=== PATIENT | female | born 1960 | race African-American/Black ===

== ENCOUNTER 2017-09-05 18:02 | Emergency (ER) | payer MEDICARE, MEDICAID ==
[~2017-09-05] VITALS: Ht 160 cm; Wt 60.0 kg
[2017-09-05] MEDS ORDERED: WARF1TAB46 PO (18:07)
[2017-09-05] MEDS ORDERED: IBUPROFEN 600MG TABLET PO ONE (23:15)
[2017-09-06 02:55] VITALS: BP 100/67
== END 2017-09-06 02:57 | disposition home or self-care (01) ==
LOC: ER 18:02
DX: M25.571 Pain in right ankle and joints of right foot (principal); M79.671 Pain in right foot; Z88.0 Allergy status to penicillin; Z86.711 Personal history of pulmonary embolism
CPT/HCPCS: 73610; 73630; 93971; 99284

== ENCOUNTER 2018-02-28 21:40 | Emergency (ER) | payer MEDICARE, MEDICAID ==
[~2018-02-28] VITALS: Ht 160 cm; Wt 56.7 kg
[~2018-02-28 21:40] MED LIST: WARF1TAB46 PO
[2018-03-01] MEDS ORDERED: HYDROCODONE/ACETAMINOPHEN 5/325MG TABLET PO ONE (01:15)
[2018-03-01 01:51] LABS: BASOPHILS % 0.5 % (0.0-2.0); EOSINOPHILS % 2.1 % (0.0-5.0); HEMATOCRIT. 31.4 % (36.0-48.0); HEMOGLOBIN. 11.1 g/dL (12.0-16.0); LYMPHOCYTES % 38.9 % (20.0-50.0); MEAN CORPUSCULAR HEMOGLOBIN 32.5 pg (28.0-32.0); MEAN CORPUSCULAR VOLUME 92.2 fL (81.0-99.0); MEAN PLATELET VOLUME 8.2 fl (7.4-10.4); MONOCYTES % 9.9 % (2.0-8.0); NEUTROPHILS % 48.6 % (40.0-76.0); PLATELET 245 x1000/uL (130-400); RED CELL DISTRIBUTION WIDTH 13.3 % (11.6-14.6)
[2018-03-01 01:58] LABS: CHLORIDE 112 mEq/L (98-107)
[2018-03-01 03:06] VITALS: BP 103/65
== END 2018-03-01 03:51 | disposition home or self-care (01) ==
LOC: ER 22:49
DX: J98.8 Other specified respiratory disorders (principal); G89.29 Other chronic pain; M54.9 Dorsalgia, unspecified; F12.10 Cannabis abuse, uncomplicated; Z79.899 Other long term (current) drug therapy
CPT/HCPCS: 36415; 71045; 87804; 99284

== ENCOUNTER 2018-08-19 06:53 | Emergency (ER) | payer MEDICARE, MEDICAID ==
[~2018-08-19] VITALS: Ht 160 cm; Wt 57.0 kg
[2018-08-19] MEDS ORDERED: FAMOTIDINE 20MG/2ML VIAL IV STA (07:49)
[2018-08-19] MEDS ORDERED: SODIUM CHLORIDE 0.9% 1,000 ML IV ONE (07:49)
[2018-08-19] MEDS ORDERED: KETOROLAC 30MG/ML VIAL IV STA (07:49)
[2018-08-19] MEDS ORDERED: ONDANSETRON HCL 4MG/2ML INJ IV STA (07:49)
[2018-08-19 08:14] LABS: CHLORIDE 110 mEq/L (98-107); INR 1.1; PROTHROMBIN TIME 11.6 sec (9.6-11.0)
[2018-08-19 08:15] LABS: HEMATOCRIT. 36.7 % (36.0-48.0); HEMOGLOBIN. 12.9 g/dL (12.0-16.0); MEAN CORPUSCULAR HEMOGLOBIN 32.1 pg (28.0-32.0); MEAN PLATELET VOLUME 8.7 fl (7.4-10.4); PLATELET 245 x1000/uL (130-400); RED BLOOD CELL COUNT 4.03 mill/uL (4.2-5.4); RED CELL DISTRIBUTION WIDTH 12.6 % (11.6-14.6)
[2018-08-19 08:49] LABS: PLATELET ESTIMATE NORMAL
[2018-08-19] MEDS ORDERED: ACETAMINOPHEN 325MG TABLET PO ONE (10:00)
[2018-08-19] MEDS ORDERED: ONDANSETRON HCL 4MG TABLET PO ONE (10:00)
[2018-08-19 10:29] LABS: CLARITY URINE CLEAR (CLEAR); COLOR URINE YELLOW (YELLOW); KETONES URINE TRACE (NEGATIVE); LEUKOCYTE ESTERASE URINE NEGATIVE (NEGATIVE); NITRITE URINE NEGATIVE (NEGATIVE); OCCULT BLOOD URINE NEGATIVE (NEGATIVE); PROTEIN URINE NEGATIVE (NEGATIVE); SPECIFIC GRAVITY URINE 1.008 (1.005-1.030); UROBILINOGEN URINE 0.2 E.U./dL (0.2-1.0)
[2018-08-19 11:11] VITALS: BP 166/89
== END 2018-08-19 11:30 | disposition home or self-care (01) ==
LOC: ER 06:53
DX: R10.9 Unspecified abdominal pain (principal); R11.2 Nausea with vomiting, unspecified; E87.6 Hypokalemia; D72.829 Elevated white blood cell count, unspecified; F12.10 Cannabis abuse, uncomplicated
CPT/HCPCS: 36415; 80053; 81003; 83690; 85025; 85610; 96361; 96374; 96375; 99283; J1885; J2405; J3490; J7030; Q0162

== ENCOUNTER 2021-07-05 21:22 | Emergency (ER) | payer MEDICARE, MEDICAID ==
[~2021-07-05] VITALS: Ht 160 cm; Wt 50.8 kg
[2021-07-05 22:36] VITALS: BP 124/83
[2021-07-06] MEDS ORDERED: IBUP-2028 MT (08:46)
== END 2021-07-06 01:40 | disposition left against medical advice (07) ==
LOC: ER 21:22
DX: Z53.21 Procedure and treatment not carried out due to patient leaving prior to being seen by health care provider (principal); M25.512 Pain in left shoulder; M25.511 Pain in right shoulder; I10 Essential (primary) hypertension; J45.909 Unspecified asthma, uncomplicated
CPT/HCPCS: 73030

== ENCOUNTER 2021-07-06 06:05 | Emergency (ER) | payer MEDICARE, MEDICAID ==
[~2021-07-06] VITALS: Ht 160 cm; Wt 50.8 kg
[2021-07-06] MEDS ORDERED: IBUPROFEN 600MG TABLET PO STA (06:39)
[2021-07-06 07:00] VITALS: BP 147/99
[2021-07-06] MEDS ORDERED: IBUP-2028 MT (08:46)
== END 2021-07-06 09:25 | disposition home or self-care (01) ==
LOC: ER 06:05
DX: M25.512 Pain in left shoulder (principal); M25.511 Pain in right shoulder; M19.012 Primary osteoarthritis, left shoulder; M19.011 Primary osteoarthritis, right shoulder; I10 Essential (primary) hypertension; J45.909 Unspecified asthma, uncomplicated
CPT/HCPCS: 71045; 99283

== ENCOUNTER 2021-10-31 22:30 | Emergency (ER) | payer MEDICARE, MEDICAID ==
[~2021-10-31] VITALS: Ht 162.6 cm; Wt 55.0 kg
[~2021-10-31 22:30] MED LIST changes: +IBUP-2028 MT
[2021-10-31 22:34] VITALS: BP 122/85
[2021-10-31] MEDS ORDERED: FAMOTIDINE 20MG/2ML VIAL IV STA (23:31)
[2021-10-31] MEDS ORDERED: SODIUM CHLORIDE 0.9% 1,000 ML IV ONE (23:45)
[2021-11-01 00:33] LABS: BASOPHILS % 1.1 % (0.0-2.0); EOSINOPHILS % 2.7 % (0.0-5.0); HEMATOCRIT. 33.7 % (36.0-48.0); HEMOGLOBIN. 11.3 g/dL (12.0-16.0); LYMPHOCYTES % 34.6 % (20.0-50.0); MEAN CORPUSCULAR HEMOGLOBIN 31.2 pg (28.0-32.0); MEAN CORPUSCULAR VOLUME 92.7 fL (81.0-99.0); MEAN PLATELET VOLUME 8.1 fl (7.4-10.4); MONOCYTES % 7.6 % (2.0-8.0); PLATELET 276 x1000/uL (130-400); RED BLOOD CELL COUNT 3.64 mill/uL (4.2-5.4); RED CELL DISTRIBUTION WIDTH 13.6 % (11.6-14.6)
[2021-11-01 00:40] LABS: CHLORIDE 108 mEq/L (98-107)
[2021-11-01 01:58] LABS: CLARITY URINE CLOUDY (CLEAR); COLOR URINE YELLOW (YELLOW); KETONES URINE NEGATIVE (NEGATIVE); LEUKOCYTE ESTERASE URINE 1+ (NEGATIVE); NITRITE URINE NEGATIVE (NEGATIVE); OCCULT BLOOD URINE NEGATIVE (NEGATIVE); PH URINE 6.5 (4.5-8.0); PROTEIN URINE NEGATIVE (NEGATIVE); SPECIFIC GRAVITY URINE 1.014 (1.005-1.030); UROBILINOGEN URINE 0.2 E.U./dL (0.2-1.0)
[2021-11-01] MEDS ORDERED: ONDA4TAB50 MT (03:09)
[2021-11-01] MEDS ORDERED: HYDR-4001 MT (03:09)
== END 2021-11-01 04:46 | disposition home or self-care (01) ==
LOC: ER 22:30
DX: R10.13 Epigastric pain (principal); K85.90 Acute pancreatitis without necrosis or infection, unspecified; I10 Essential (primary) hypertension; J45.909 Unspecified asthma, uncomplicated; F12.10 Cannabis abuse, uncomplicated; Z79.01 Long term (current) use of anticoagulants
CPT/HCPCS: 36415; 71045; 74176; 80053; 81003; 83605; 83690; 85025; 93005; 96361; 96374; 99285; J3490; J7030

== ENCOUNTER 2021-11-17 22:09 | Emergency (ER) | payer MEDICARE, MEDICAID ==
[~2021-11-17] VITALS: Ht 152.4 cm; Wt 61.0 kg
[~2021-11-17 22:09] MED LIST changes: +HYDR-4001 MT; +ONDA4TAB50 MT
[2021-11-17 22:15] VITALS: BP 107/67
[2021-11-18] MEDS ORDERED: MAGNESIUM/ALUMINUM HYDROXIDE/SIMETHICONE 30ML UDC PO STA (03:53)
[2021-11-18] MEDS ORDERED: ACETAMINOPHEN 325MG TABLET PO STA (03:53)
[2021-11-18 04:48] LABS: CLARITY URINE CLEAR (CLEAR); COLOR URINE YELLOW (YELLOW); KETONES URINE TRACE (NEGATIVE); LEUKOCYTE ESTERASE URINE TRACE (NEGATIVE); NITRITE URINE NEGATIVE (NEGATIVE); OCCULT BLOOD URINE NEGATIVE (NEGATIVE); PROTEIN URINE NEGATIVE (NEGATIVE); SPECIFIC GRAVITY URINE 1.023 (1.005-1.030)
[2021-11-18] MEDS ORDERED: ALBU18HF2 IH (05:19)
[2021-11-18] MEDS ORDERED: ACET-2708 PO (05:19)
== END 2021-11-18 05:40 | disposition home or self-care (01) ==
LOC: ER 22:09
DX: M54.50 Low back pain, unspecified (principal); J45.909 Unspecified asthma, uncomplicated; I10 Essential (primary) hypertension; F12.10 Cannabis abuse, uncomplicated
CPT/HCPCS: 81003; 99283

== ENCOUNTER 2021-12-20 10:32 | Emergency (ER) | payer MEDICARE ==
[~2021-12-20] VITALS: Ht 162.6 cm; Wt 54.0 kg
[~2021-12-20 10:32] MED LIST changes: +ACET-2708 PO; +ALBU18HF2 IH
[2021-12-20] MEDS ORDERED: KETOROLAC 30MG/ML VIAL IM STA (12:42)
[2021-12-20] MEDS ORDERED: T3 PO (13:10)
[2021-12-20 13:32] VITALS: BP 143/97
== END 2021-12-20 13:33 | disposition home or self-care (01) ==
LOC: ER 10:32
DX: S40.011A Contusion of right shoulder, initial encounter (principal); F12.10 Cannabis abuse, uncomplicated; I10 Essential (primary) hypertension; J45.909 Unspecified asthma, uncomplicated; Z98.890 Other specified postprocedural states; V09.9XXA Pedestrian injured in unspecified transport accident, initial encounter; Y93.89 Activity, other specified; Y92.89 Other specified places as the place of occurrence of the external cause; Y99.8 Other external cause status
CPT/HCPCS: 73030; 96372; 99283; J1885

== ENCOUNTER 2021-12-22 20:15 | Emergency (ER) | payer MEDICARE, MEDICAID ==
[~2021-12-22] VITALS: Ht 160 cm; Wt 56.0 kg
[~2021-12-22 20:15] MED LIST changes: +T3 PO
[2021-12-22 21:19] LABS: BASOPHILS % 0.7 % (0.0-2.0); EOSINOPHILS % 1.5 % (0.0-5.0); HEMATOCRIT. 34.2 % (36.0-48.0); HEMOGLOBIN. 12.1 g/dL (12.0-16.0); LYMPHOCYTES % 27.1 % (20.0-50.0); MEAN CORPUSCULAR HEMOGLOBIN 32.3 pg (28.0-32.0); MEAN CORPUSCULAR VOLUME 90.8 fL (81.0-99.0); MEAN PLATELET VOLUME 7.8 fl (7.4-10.4); MONOCYTES % 5.7 % (2.0-8.0); PLATELET 334 x1000/uL (130-400); RED BLOOD CELL COUNT 3.77 mill/uL (4.2-5.4); RED CELL DISTRIBUTION WIDTH 13.7 % (11.6-14.6)
[2021-12-22 21:23] LABS: CHLORIDE 109 mEq/L (98-107)
[2021-12-22] MEDS: LIDOCAINE 5% PATCH TOP SCH (21:29)
[2021-12-22] MEDS: IBUPROFEN 400MG TABLET PO ONE (21:29)
[2021-12-22] MEDS: ACETAMINOPHEN 325MG TABLET PO ONE (21:29)
[2021-12-23 00:44] VITALS: BP 100/64
[2021-12-23] MEDS ORDERED: METH-653 MT (00:50)
== END 2021-12-23 01:41 | disposition home or self-care (01) ==
LOC: ER 20:15
DX: M25.511 Pain in right shoulder (principal); F41.9 Anxiety disorder, unspecified; J45.909 Unspecified asthma, uncomplicated; F32.9 Major depressive disorder, single episode, unspecified; I10 Essential (primary) hypertension; F12.10 Cannabis abuse, uncomplicated
CPT/HCPCS: 36415; 73080; 80053; 83880; 84484; 85025; 93005; 99285

== ENCOUNTER 2022-01-14 00:26 | Emergency (ER) | payer MEDICARE ==
[~2022-01-14 00:26] MED LIST changes: +METH-653 MT
[2022-01-15] MEDS ORDERED: LIDO700A15 TP (05:20)
[2022-01-15] MEDS ORDERED: ACET-2708 MT (05:20)
== END 2022-01-14 01:02 | disposition left against medical advice (07) ==
LOC: ER 00:26
DX: Z53.21 Procedure and treatment not carried out due to patient leaving prior to being seen by health care provider (principal)

== ENCOUNTER 2022-01-15 00:57 | Emergency (ER) | payer MEDICARE ==
[~2022-01-15] VITALS: Ht 160 cm; Wt 50.5 kg
[2022-01-15] MEDS ORDERED: ACETAMINOPHEN 325MG TABLET PO ONE (05:15)
[2022-01-15] MEDS ORDERED: LIDO700A15 TP (05:20)
[2022-01-15] MEDS ORDERED: ACET-2708 MT (05:20)
[2022-01-15 05:26] VITALS: BP 124/78
== END 2022-01-15 05:27 | disposition home or self-care (01) ==
LOC: ER 00:57
DX: M25.511 Pain in right shoulder (principal); G89.29 Other chronic pain; I10 Essential (primary) hypertension; Z79.899 Other long term (current) drug therapy
CPT/HCPCS: 73030; 93005; 99283

== ENCOUNTER 2022-01-28 01:58 | Emergency (ER) | payer MEDICARE, MEDICAID ==
[~2022-01-28] VITALS: Ht 160 cm; Wt 54.0 kg
[~2022-01-28 01:58] MED LIST changes: +ACET-2708 MT; +LIDO700A15 TP
[2022-01-28 02:11] VITALS: BP 112/76
[2022-01-28] MEDS ORDERED: TRANEXAMIC ACID 1,000 MG/10 ML TP ONE (03:45)
[2022-01-28] MEDS ORDERED: ACETAMINOPHEN 325MG TABLET PO STA (03:59)
[2022-01-28] MEDS ORDERED: NAPR-681 PO (04:25)
== END 2022-01-28 05:05 | disposition home or self-care (01) ==
LOC: ER 01:58
DX: M25.511 Pain in right shoulder (principal); I10 Essential (primary) hypertension; W01.0XXA Fall on same level from slipping, tripping and stumbling without subsequent striking against object, initial encounter; Y93.89 Activity, other specified; Y92.89 Other specified places as the place of occurrence of the external cause; Z86.711 Personal history of pulmonary embolism
CPT/HCPCS: 99282

== ENCOUNTER 2022-02-25 23:07 | Emergency (ER) | payer MEDICARE, MEDICAID ==
[~2022-02-25] VITALS: Ht 160 cm; Wt 51.2 kg
[~2022-02-25 23:07] MED LIST changes: +NAPR-681 PO
[2022-02-26 00:05] VITALS: BP 118/76
[2022-02-26] MEDS ORDERED: IBUP-2028 MT (11:10)
== END 2022-02-26 02:30 | disposition left against medical advice (07) ==
LOC: ER 23:07
DX: Z53.21 Procedure and treatment not carried out due to patient leaving prior to being seen by health care provider (principal)

== ENCOUNTER 2022-02-26 07:49 | Emergency (ER) | payer MEDICARE, MEDICAID ==
[~2022-02-26] VITALS: Ht 160 cm; Wt 51.0 kg
[2022-02-26] MEDS ORDERED: IBUPROFEN 400MG TABLET PO ONE (11:00)
[2022-02-26] MEDS ORDERED: ACETAMINOPHEN 325MG TABLET PO ONE (11:00)
[2022-02-26] MEDS ORDERED: IBUP-2028 MT (11:10)
[2022-02-26] MEDS ORDERED: FAMOTIDINE 20MG TABLET PO ONE (12:00)
[2022-02-26] MEDS ORDERED: ONDANSETRON 4MG ODT PO ONE (12:00)
[2022-02-26 12:11] VITALS: BP 123/75
== END 2022-02-26 12:17 | disposition home or self-care (01) ==
LOC: ER 07:49
DX: M79.672 Pain in left foot (principal); M79.671 Pain in right foot; I10 Essential (primary) hypertension; Z79.899 Other long term (current) drug therapy
CPT/HCPCS: 99284; Q0162

== ENCOUNTER 2022-02-26 18:22 | Emergency (ER) | payer MEDICARE, MEDICAID ==
[~2022-02-26] VITALS: Ht 165.1 cm; Wt 59.0 kg
[2022-02-26 18:23] VITALS: BP 170/99
[2022-02-26] MEDS ORDERED: ONDANSETRON 4MG ODT PO STA (18:31)
[2022-02-26 19:07] LABS: BASOPHILS % 0.2 % (0.0-2.0); HEMATOCRIT. 37.6 % (36.0-48.0); HEMOGLOBIN. 12.9 g/dL (12.0-16.0); MEAN CORPUSCULAR HEMOGLOBIN 31.2 pg (28.0-32.0); MEAN CORPUSCULAR VOLUME 90.7 fL (81.0-99.0); MEAN PLATELET VOLUME 7.9 fl (7.4-10.4); MONOCYTES % 4.1 % (2.0-8.0); NEUTROPHILS % 86.7 % (40.0-76.0); PLATELET 323 x1000/uL (130-400); RED BLOOD CELL COUNT 4.14 mill/uL (4.2-5.4); RED CELL DISTRIBUTION WIDTH 14.3 % (11.6-14.6)
[2022-02-26 19:22] LABS: CHLORIDE 108 mEq/L (98-107)
[2022-02-26 19:31] LABS: ETHANOL BLOOD < 10 mg/dL
== END 2022-02-26 22:30 | disposition left against medical advice (07) ==
LOC: ER 18:22
DX: R11.2 Nausea with vomiting, unspecified (principal); I10 Essential (primary) hypertension; Z79.899 Other long term (current) drug therapy
CPT/HCPCS: 36415; 80053; 80320; 85025; 99283; G0480

== ENCOUNTER 2022-02-27 06:50 | Emergency (ER) | payer MEDICARE, MEDICAID ==
[~2022-02-27] VITALS: Ht 157.5 cm; Wt 51.0 kg
[2022-02-27 06:59] VITALS: BP 177/123
[2022-02-27] MEDS ORDERED: ONDANSETRON 4MG ODT PO ONE (08:45)
[2022-02-27] MEDS ORDERED: FAMOTIDINE 20MG TABLET PO ONE (08:45)
[2022-02-27] MEDS ORDERED: MAGNESIUM/ALUMINUM HYDROXIDE/SIMETHICONE 30ML UDC PO ONE (08:45)
[2022-02-27 14:40] LABS: BASOPHILS % 0.3 % (0.0-2.0); EOSINOPHILS % 0.1 % (0.0-5.0); HEMATOCRIT. 37.1 % (36.0-48.0); HEMOGLOBIN. 13.3 g/dL (12.0-16.0); LYMPHOCYTES % 9.3 % (20.0-50.0); MEAN CORPUSCULAR HEMOGLOBIN 31.7 pg (28.0-32.0); MEAN CORPUSCULAR VOLUME 88.1 fL (81.0-99.0); MEAN PLATELET VOLUME 7.6 fl (7.4-10.4); MONOCYTES % 8.2 % (2.0-8.0); NEUTROPHILS % 82.1 % (40.0-76.0); PLATELET 322 x1000/uL (130-400); RED BLOOD CELL COUNT 4.21 mill/uL (4.2-5.4); RED CELL DISTRIBUTION WIDTH 14.1 % (11.6-14.6)
[2022-02-27 14:45] LABS: CHLORIDE 102 mEq/L (98-107)
[2022-02-27] MEDS: MAGNESIUM/ALUMINUM HYDROXIDE/SIMETHICONE 30ML UDC PO NR ×2 (15:02→16:25)
[2022-02-27] MEDS: FAMOTIDINE 20MG TABLET PO NR ×2 (15:02→16:25)
[2022-02-27] MEDS: ONDANSETRON 4MG ODT PO NR ×2 (15:02→16:25)
[2022-02-27] MEDS ORDERED: SODIUM CHLORIDE 0.9% 1,000 ML IV ONE (15:45)
[2022-02-27] MEDS ORDERED: IOHEXOL-300 100 ML BOTTLE ONE (16:41)
[2022-02-27 20:34] LABS: CLARITY URINE CLEAR (CLEAR); COLOR URINE YELLOW (YELLOW); KETONES URINE NEGATIVE (NEGATIVE); LEUKOCYTE ESTERASE URINE NEGATIVE (NEGATIVE); NITRITE URINE NEGATIVE (NEGATIVE); OCCULT BLOOD URINE NEGATIVE (NEGATIVE); PH URINE 6.5 (4.5-8.0); PROTEIN URINE TRACE (NEGATIVE); UROBILINOGEN URINE 0.2 E.U./dL (0.2-1.0)
== END 2022-02-27 22:51 | disposition home or self-care (01) ==
LOC: ER 06:50
DX: R10.13 Epigastric pain (principal); I10 Essential (primary) hypertension; Z86.711 Personal history of pulmonary embolism; Z79.01 Long term (current) use of anticoagulants
CPT/HCPCS: 36415; 74177; 80053; 81003; 83605; 83690; 84484; 85025; 96360; 96361; 99285; Q0162; Q9967

== ENCOUNTER 2022-04-28 23:10 | Emergency (ER) | payer MEDICARE, MEDICAID ==
[~2022-04-28] VITALS: Ht 160 cm; Wt 62.0 kg
[2022-04-28 23:46] VITALS: BP 124/86
[2022-04-29] MEDS ORDERED: ACET-2708 MT (02:40)
[2022-04-29] MEDS ORDERED: ONDA4TAB50 PO (11:57)
[2022-04-29] MEDS ORDERED: TOPUD PO (11:57)
== END 2022-04-29 04:36 | disposition home or self-care (01) ==
LOC: ER 23:10
DX: S92.491A Other fracture of right great toe, initial encounter for closed fracture (principal); I10 Essential (primary) hypertension; W22.09XA Striking against other stationary object, initial encounter; Y93.89 Activity, other specified; Y92.9 Unspecified place or not applicable; Z86.711 Personal history of pulmonary embolism
CPT/HCPCS: 73630; 99283

== ENCOUNTER 2022-04-29 05:53 | Emergency (ER) | payer MEDICARE, MEDICAID ==
[~2022-04-29] VITALS: Ht 160 cm; Wt 62.0 kg
[2022-04-29 06:39] VITALS: BP 120/90
[2022-04-29] MEDS ORDERED: ONDA4TAB50 PO (11:57)
[2022-04-29] MEDS ORDERED: TOPUD PO (11:57)
== END 2022-04-29 12:34 | disposition home or self-care (01) ==
LOC: ER 05:53
DX: R10.9 Unspecified abdominal pain (principal); R11.2 Nausea with vomiting, unspecified; I10 Essential (primary) hypertension; Z86.711 Personal history of pulmonary embolism
CPT/HCPCS: 74176; 99284